=== PATIENT | female | born 1990 | race Caucasian/White ===

== ENCOUNTER 2020-05-02 20:23 | Emergency (ER) | payer SELFPAY ==
[2020-05-02 20:38] VITALS: BP 139/86; PULSE 85; RESP 18; TEMP 37.1; O2SAT 97; BMI 24.4
--- NOTE | 2020-05-02 20:52 | USR_ITS ---
PROCEDURE INFORMATION: Exam: US First Trimester, Transabdominal and US , Transvaginal Exam date and time: 05/02/2020 11:20 PM Age: 29 years old Clinical indication: Other: Bleeding and cramping; Additional info: with vaginal bleeding. Artificial insemination on 02/26/2020. TECHNIQUE: Imaging protocol: Real-time transabdominal obstetrical ultrasound of the maternal pelvis and a first trimester , less than 14 weeks 0 days, with image documentation. Transvaginal imaging was used for better evaluation of the fetus, adnexa, and/or cervix. COMPARISON: No relevant prior studies available. FINDINGS: The uterus is empty. No visible intra or extrauterine gestational sac. Endometrial thickness is 7.4 mm. No free pelvic fluid. Maternal ovaries/adnexa appear essentially unremarkable. Blood flow detected in each ovary. The sonographic appearance from this single exam alone is nonspecific. The differential diagnosis includes; an early viable intrauterine less than four to five weeks gestation; a miscarriage; as well as an occult ectopic . Appropriate clinical follow up, including HCG level follow-up is recommended. The urinary bladder was not completely evaluated/imaged at this time. Endovaginal scanning provided better visualization/evaluation of the endometrium and adnexal regions, as discussed above. US/US pelvic with transvaginal IMPRESSION: 1. No visible intra or extrauterine gestational sac. 2. See above discussion and recommendations. 3. Unremarkable ovaries/adnexa. 4. Other details discussed above.
--- NOTE | 2020-05-02 21:12 | W.ED.PREGNAN ---
HPI - General: Chief complaint: Vaginal Bleeding Stated complaint: 7wks preg/vaginal bleeding Time Seen by Provider: 05/02/20 20:42 History of Present Illness: HPI Narrative: Patient is a 29-year-old 7-week female comes to the ED with vaginal bleeding. Patient says she was artificially inseminated and was told that she is with triplets. She has not had her first official OB appointment since being . Patient says that bleeding started earlier today and she describes it as a light pink color. She has some light pelvic cramping. She does have some nausea currently and says that she has been constipated for about 3 days. Endorses dysuria. Denies fever, chills, chest pain, shortness of breath, vomiting, diarrhea or hematuria. Denies any passing of clots or tissue. Patient says they have a meeting with their OB doctor this May 04. Associated symptoms: Reports dysuria and nausea; Deny abdominal pain, headache(s), vaginal discharge or vomiting Review of Systems Const: Denies: fever(s), chills or fatigue Eyes: Denies: change in vision or eye discomfort ENMT: Denies: throat pain, odynophagia, nasal discharge or nasal congestion Card: Denies: chest pain, palpitations, edema, swelling of feet/ankles, dyspnea on exertion or orthopnea Resp: Denies: dyspnea, productive cough or non-productive cough GI: Reports: nausea and constipation; Denies: abdominal pain, vomiting, diarrhea or hematochezia : Reports: dysuria, vaginal bleeding (Light pink color) and pelvic pain (Pelvic cramping); Denies: flank pain, hematuria or vaginal discharge Musc: Denies: neck pain, back pain or extremity swelling Skin/Breast: Denies: rash or new lesions Neuro: Denies: headache(s), numbness in extremities or weakness in extremities Physical Exam Const: COMMON NORMALS: no acute distress, patient oriented x3 and alert HENMT: COMMON NORMALS: normocephalic HEAD & SCALP: normocephalic MOUTH: Normal oral and palatal mucosa present THROAT: posterior oropharynx normal and uvula midline Eye: COMMON NORMALS: Equal, round and reactive pupils present PUPIL: Yes Equal, round and reactive pupils present Neck/C-Spine: COMMON NORMALS: supple GENERAL: Yes normal visual inspection Resp: COMMON NORMALS: normal respiratory effort, No retractions, No use of accessory muscles and clear to auscultation bilaterally AUSCULTATION: clear to auscultation bilaterally Cardio: COMMON NORMALS: regular rate, regular rhythm, S1 normal heart sound present, S2 normal heart sound present, No gallops present (Cardio), No clicks present (Cardio), No murmurs present (Cardio) and Peripheral pulses 2+ throughout RATE: regular rate RHYTHM: regular rhythm HEART SOUNDS: S1 normal heart sound present and S2 normal heart sound present PERIPHERAL PULSES: Peripheral pulses 2+ throughout GI: COMMON NORMALS: Normal to inspection, nondistended, normoactive bowel sounds present, Soft to palpation, non-tender and no masses PALPATION: Yes Soft to palpation : COMMON NORMALS: Yes no CVA tenderness BLADDER/KIDNEY EXAM: Yes no CVA tenderness Back/Pelvis: COMMON NORMALS: no CVA tenderness Extremity: COMMON NORMALS: normal to inspection Neuro: COMMON NORMALS: patient oriented x3 and moves all extremities SENSORIUM/ORIENTATION: Yes alert Skin: GENERAL SKIN EXAM: dry skin Course Vital Signs: Vital signs: Vital Signs Temperature 98.8 F 05/02/20 20:38 Pulse Rate 82 05/02/20 23:51 Respiratory Rate 18 05/02/20 23:51 Blood Pressure 117/64 05/02/20 23:51 Pulse Oximetry 97 05/02/20 23:51 MDM - OB/Uterine Contractions MDM Narrative: Medical decision making narrative: Patient is a 29-year-old female comes to the ED with light vaginal bleeding and is apparently 7 weeks . Patient says she has been seen an OB specialist and was artificially inseminated. She says she has had multiple positive tests. Patient appears in no acute distress or pain. CBC and CMP were unremarkable. Rh type positive and hCG quant 0.5 which is negative for . Urinalysis shows evidence of UTI. Ultrasound of the pelvis showed no visible intrauterine or extrauterine gestational sac seen. No other acute findings. Patient was discharged with a UTI and told to take prescribed nitrofurantoin. Patient has a follow-up appointment on Monday, May 04 with her OB doctor. Return to ED precautions given. Patient understood and agreed with plan. Lab Data: Attestation: I reviewed the patient's lab results. Labs: Lab Results 05/02/20 05/02/20 05/02/20 Range/Units 21:04 21:04 21:04 WBC 9.6 (4.0-10.0) 10^3/ uL RBC 4.49 (4.1-5.3) 10^6/u L Hgb 13.1 (11.5-15.3) g/dL Hct 39.7 (37.0-47.0) % MCV 88.4 (81-99) fL MCH 29.2 (28.0-34.0) pg MCHC 33.0 (30.0-36.0) g/dL RDW 13.8 (12.1-15.1) % Plt Count 476 H (130-400) 10^3/c mm MPV 9.5 (7.4-10.4) fL Neut % (Auto) 59.2 % Lymph % (Auto) 29.6 % Nuckolls % (Auto) 8.2 % Eos % (Auto) 2.2 % Baso % (Auto) 0.6 % Neut # (Auto) 5.71 (1.8-7.7) 10^3/u L Lymph # (Auto) 2.9 (0.8-4.8) 10^3/u L Nuckolls # (Auto) 0.8 (0.2-0.9) 10^3/u L Eos # (Auto) 0.2 (0.0-0.8) 10^3/u L Baso # (Auto) 0.1 (0.0-0.1) 10^3/u L Nucleated RBC % (a uto) 0 % Nucleated RBCs # 0.0 /100WBC Sodium 139 (136-145) mmol/L Potassium 3.5 (3.5-5.1) mmol/L Chloride 105 (98-107) mmol/L Carbon Dioxide 24 (22-29) mmol/L Anion Gap 13.5 (5-19) BUN 11 (6-20) mg/dL Creatinine 0.6 (0.5-0.9) mg/dL GFR Calculation 119.0 (90-130) mL/min Glucose 95 (65-115) mg/dL Calculated Osmolal ity 287 (285-295) mOsm/k g Calcium 9.2 (8.5-10.5) mg/dL Total Bilirubin 0.2 (0.15-1.2) mg/dL AST 34 H (0-32) U/L ALT 56 H (0-33) U/L Alkaline Phosphata se 68 (35-105) IU/L Total Protein 7.0 (6.6-8.7) g/dL Albumin 4.3 (3.5-5.2) g/dL Globulin 2.7 (1.3-4.6) g/dL Ser , Jonn i-Qnt 0.50 mIU/mL Urine Color (Yellow) Urine Appearance (CLEAR) Urine pH (5-7) Ur Specific Gravit y (1.005-1.030) Urine Protein (Negative) Urine Glucose (UA) (Normal) Urine Ketones (Negative) Urine Blood (Negative) Urine Nitrate (Negative) Urine Bilirubin (Negative) Urine Urobilinogen (Negative) mg/dL Ur Leukocyte Mariely ase (Negative) Urine RBC (0-2) /hpf Urine WBC (0-5) /hpf Ur Squamous Epith Cells (0-5) /hpf Amorphous Sediment Urine Bacteria (NONE) /hpf Rho(D) Type Positive 05/02/20 Range/Units 22:19 WBC (4.0-10.0) 10^3/ uL RBC (4.1-5.3) 10^6/u L Hgb (11.5-15.3) g/dL Hct (37.0-47.0) % MCV (81-99) fL MCH (28.0-34.0) pg MCHC (30.0-36.0) g/dL RDW (12.1-15.1) % Plt Count (130-400) 10^3/c mm MPV (7.4-10.4) fL Neut % (Auto) % Lymph % (Auto) % Nuckolls % (Auto) % Eos % (Auto) % Baso % (Auto) % Neut # (Auto) (1.8-7.7) 10^3/u L Lymph # (Auto) (0.8-4.8) 10^3/u L Nuckolls # (Auto) (0.2-0.9) 10^3/u L Eos # (Auto) (0.0-0.8) 10^3/u L Baso # (Auto) (0.0-0.1) 10^3/u L Nucleated RBC % (a uto) % Nucleated RBCs # /100WBC Sodium (136-145) mmol/L Potassium (3.5-5.1) mmol/L Chloride (98-107) mmol/L Carbon Dioxide (22-29) mmol/L Anion Gap (5-19) BUN (6-20) mg/dL Creatinine (0.5-0.9) mg/dL GFR Calculation (90-130) mL/min Glucose (65-115) mg/dL Calculated Osmolal ity (285-295) mOsm/k g Calcium (8.5-10.5) mg/dL Total Bilirubin (0.15-1.2) mg/dL AST (0-32) U/L ALT (0-33) U/L Alkaline Phosphata se (35-105) IU/L Total Protein (6.6-8.7) g/dL Albumin (3.5-5.2) g/dL Globulin (1.3-4.6) g/dL Ser , Jonn i-Qnt mIU/mL Urine Color Yellow (Yellow) Urine Appearance Turbid (CLEAR) Urine pH 5 (5-7) Ur Specific Gravit y 1.020 (1.005-1.030) Urine Protein Trace (Negative) Urine Glucose (UA) Norm (Normal) Urine Ketones 1+ H (Negative) Urine Blood 3+ H (Negative) Urine Nitrate Negative (Negative) Urine Bilirubin 1+ H (Negative) Urine Urobilinogen 4 H (Negative) mg/dL Ur Leukocyte Mariely ase 1+ H (Negative) Urine RBC Too numerous to c nt H (0-2) /hpf Urine WBC 15-25 H (0-5) /hpf Ur Squamous Epith Cells 40-55 H (0-5) /hpf Amorphous Sediment Not Reportable Urine Bacteria 1+ H (NONE) /hpf Rho(D) Type Imaging Data^: US OB: Attestation: I personally reviewed and interpreted this imaging study as follows: Radiologist's impression: [address] [address] Ultrasound Report Signed Patient: Mary Elias #: [id number] : 1990Acct#:[id number] Age/Sex: FAD Date: 05/02/20 Loc: ERRoom/Bed: Attending Dr: Ordering Provider/Ordering MD: Mitchell Grayson Date of Service: 05/02/20 Procedure(s): US pelvic with transvaginal Accession Number(s): [id number] Report Number: [id number] PROCEDURE INFORMATION: Exam: US First Trimester, Transabdominal and US , Transvaginal Exam date and time: 05/02/2020 11:20 PM Age: 29 years old Clinical indication: Other: Bleeding and cramping; Additional info: with vaginal bleeding. Artificial insemination on 02/26/2020. TECHNIQUE: Imaging protocol: Real-time transabdominal obstetrical ultrasound of the maternal pelvis and a first trimester , less than 14 weeks 0 days, with image documentation. Transvaginal imaging was used for better evaluation of the fetus, adnexa, and/or cervix. COMPARISON: No relevant prior studies available. FINDINGS: The uterus is empty. No visible intra or extrauterine gestational sac. Endometrial thickness is 7.4 mm. No free pelvic fluid. Maternal ovaries/adnexa appear essentially unremarkable. Blood flow detected in each ovary. The sonographic appearance from this single exam alone is nonspecific. The differential diagnosis includes; an early viable intrauterine less than four to five weeks gestation; a miscarriage; as well as an occult ectopic . Appropriate clinical follow up, including HCG level follow-up is recommended. The urinary bladder was not completely evaluated/imaged at this time. Endovaginal scanning provided better visualization/evaluation of the endometrium and adnexal regions, as discussed above. US/US pelvic with transvaginal IMPRESSION: 1. No visible intra or extrauterine gestational sac. 2. See above discussion and recommendations. 3. Unremarkable ovaries/adnexa. 4. Other details discussed above. Dictated By:Kalyan Cavazos MD Signed By:Kalyan Cavazos MDSigned Date/Time:05/02/202348 DD/ 46 Discharge Plan Discharge Patient Disposition: Home Clinical Impression: UTI (urinary tract infection) Qualifiers: Urinary tract infection type: acute cystitis Hematuria presence: with hematuria Qualified Code(s): N30.01 - Acute cystitis with hematuria Condition: Stable Prescriptions: New nitrofurantoin macrocrystal 100 mg capsule 100 mg PO BID 7 Days Qty: 14 RF: 0 Zofran 4 mg tablet 4 mg PO Q8H PRN (Reason: nausea and vomiting) Qty: 10 RF: 0 Discharge Orders: Discharge Order (Routine); Ordered 05/02/20 Ordered By: Mitchell Grayson Discharge Diet: Regular Discharge Activity: Increase activity as tolerated Patient Instructions: Urinary Tract Infection in Women (ED) Activity Restrictions/Additional Instructions: Follow-up with medical provider as directed. Go to your previously scheduled OB appointment on May 04 for reevaluation. Take medications as prescribed. Return to the ER or your medical provider if condition worsens. Please read and understand discharge instructions. If any questions, please ask. Coding Level of Care Code ED Bicycle Repair Technician for Aide Fwd Exam Comprehensive
[2020-05-02 21:24] LABS: Basophils # 0.1 10^3/uL (0.0-0.1); Basophils % 0.6 %; Eosinophils # 0.2 10^3/uL (0.0-0.8); Eosinophils % 2.2 %; Hematocrit 39.7 % (37.0-47.0); Hemoglobin 13.1 g/dL (11.5-15.3); Lymphocytes # 2.9 10^3/uL (0.8-4.8); Lymphocytes % 29.6 %; Mean Corpuscular Hemoglobin 29.2 pg (28.0-34.0); Mean Corpuscular Volume 88.4 fL (81-99); Mean Platelet Volume 9.5 fL (7.4-10.4); Monocytes # 0.8 10^3/uL (0.2-0.9); Monocytes % 8.2 %; Neutrophils # 5.71 10^3/uL (1.8-7.7); Neutrophils % 59.2 %; Nucleated Red Blood Cells % 0 %; Platelet Count 476 10^3/cmm (130-400); Red Blood Count 4.49 10^6/uL (4.1-5.3); Red Cell Distribution Width 13.8 % (12.1-15.1); White Blood Count 9.6 10^3/uL (4.0-10.0)
[2020-05-02] MEDS: sodium chloride 0.9% 1,000 ML 999 ML IV (21:28)
[2020-05-02] MEDS: ondansetron 2 mg/ML SDV 2 mL 4 MG IVP (21:28)
[2020-05-02 21:44] LABS: Alanine Aminotransferase 56 U/L (0-33); Albumin Level 4.3 g/dL (3.5-5.2); Alkaline Phosphatase 68 IU/L (35-105); Anion Gap 13.5 (5-19); Aspartate Amino Transferase 34 U/L (0-32); Blood Urea Nitrogen 11 mg/dL (6-20); Calcium 9.2 mg/dL (8.5-10.5); Carbon Dioxide 24 mmol/L (22-29); Chloride 105 mmol/L (98-107); Globulin 2.7 g/dL (1.3-4.6); Glucose 95 mg/dL (65-115); Osmolality Calculated 287 mOsm/kg (285-295); Potassium 3.5 mmol/L (3.5-5.1); Sodium 139 mmol/L (136-145); Total Bilirubin 0.2 mg/dL (0.15-1.2)
[2020-05-02 22:38] LABS: Bilirubin Urine 1+ (Negative); Blood Urine 3+ (Negative); Glucose Urine UA Norm (Normal); Ketones Urine 1+ (Negative); Leukocyte Esterase Urine 1+ (Negative); Nitrate Urine Negative (Negative); Protein Urine Trace (Negative); Urine Appearance Turbid (CLEAR); Urine Color Yellow (Yellow); Urobilinogen Urine 4 mg/dL (Negative); pH Urine 5 (5-7)
[2020-05-02 22:43] LABS: Add Urine Culture? No; Bacteria Urine 1+ /hpf; RBC Urine TOO NUMEROUS TO CNT /hpf (0-2); Squamous Epithelial Cell Urine 40-55 /hpf (0-5); WBC Urine 15-25 /hpf (0-5)
[2020-05-02] MEDS: nitrofurantoin SR (BID) 100 mg Capsule PO (23:33)
[2020-05-02 23:51] VITALS: BP 117/64; PULSE 82; RESP 18; O2SAT 97
== END 2020-05-02 23:52 | disposition home or self-care (01) ==
PROVIDERS: Emergency Provider Physician Assistant
DX: N30.01 Acute cystitis with hematuria (principal)
CPT/HCPCS: 12345; 76815; 76817; 76830; 76856; 80053; 81001; 84702; 85025; 96361; 96374; 96375; 99283; J2405; J7030